=== PATIENT | female | born 1995 | race Caucasian/White ===

== ENCOUNTER 2025-07-05 21:15 | Emergency (ER) | payer OTHER ==
[~2025-07-05] VITALS: Ht 177.8 cm; Wt 91.4 kg
[~2025-07-05 21:15] MED LIST: LEVO-72 PO; METR500 PO; SEMA1.7P SQ
[2025-07-05 21:18] VITALS: TEMP 98.6
[2025-07-05 21:46] LABS: PLATELET COUNT (AUTO) 289 K/uL (150-450); RED BLOOD CELL COUNT(AUTO) 4.26 MIL/uL (4.00-5.20); RED CELL DISTRIBUTION WIDTH 13.7 % (11.5-14.5); WHITE BLOOD COUNT (AUTO) 9.6 K/uL (4.5-11.0)
[2025-07-05 21:52] LABS: CALCIUM, TOTAL 8.3 mg/dL (8.8-10.5); CREATININE 0.76 mg/dL (0.60-1.30); GLOMERULAR FILTR. RATE CALC > 60 mL/min (>60); GLUCOSE,RANDOM 102 mg/dL (70-110); SODIUM SERUM 141 mmol/L (136-145); UREA NITROGEN, BLOOD 10 mg/dL (7-18)
[2025-07-05 22:03] LABS: ASPARTATE AMINOTRANSFERASE 21.0 U/L (15-37); HCG,QUANTITATIVE 3.0 mIU/mL (0-6); TOTAL PROTEIN, SERUM 7.3 g/dL (6.4-8.2)
[2025-07-05] MEDS: MAG HYDROX/ALUMINUM HYD/SIMETH ES 30 ML SUSPENSION UDCUP PO ONE (23:41)
[2025-07-05 23:46] VITALS: BP 125/88; PULSE 78; RESP 15; O2SAT 99
[2025-07-06] MEDS ORDERED: OMEP-148 PO (00:08)
== END 2025-07-06 00:17 | disposition home or self-care (01) ==
LOC: EMS 21:17
DX: K21.9 Gastro-esophageal reflux disease without esophagitis (principal); E87.6 Hypokalemia; R10.13 Epigastric pain; Z87.19 Personal history of other diseases of the digestive system; Z90.49 Acquired absence of other specified parts of digestive tract; Z88.0 Allergy status to penicillin; Z79.899 Other long term (current) drug therapy
CPT/HCPCS: 80048; 80076; 83690; 84702; 84703; 85025; 99283